=== PATIENT | male | born 1980 | race Caucasian/White ===

== ENCOUNTER 2020-04-22 03:19 | Emergency (ER) | payer OTHER ==
[2020-04-22 03:55] LABS: BASOPHIL 1.8 % (0-2); EOSINOPHIL 5.9 % (0-5); HGB 16.7 g/dl (13.2-18.0); MCH 28.9 pg (25.0-31.0); MCHC 33.4 g/dL (32.0-36.0); MCV 86.7 fL (78.0-100.0); MONOCYTE 8.2 % (0-12); MPV 9.9 fL (6.0-9.5); NEUTROPHIL 50.9 % (41-80); NRBC 0; PLT 220 K/uL (150-400); RBC 5.77 M/uL (4.70-6.00); RDW 12.7 % (11.5-14.0); WBC 8.2 K/uL (4.0-10.5)
[2020-04-22 03:59] LABS: INR 1.05 (0.9-1.2)
[2020-04-22 04:07] LABS: ALBUMIN 4.1 g/dL (3.4-5.0); BILIRUBIN - TOTAL 0.5 mg/dL (0.2-1.0); BUN/CREAT RATIO (CALC) 10.5 RATIO; CREATININE 1.14 mg/dL (0.67-1.17); GLOBULIN (CALCULATION) 3.6 g/dL; POTASSIUM 4.1 mmol/L (3.5-5.1); TOTAL PROTEIN 7.7 g/dL (6.4-8.2)
== END 2020-04-22 07:56 | disposition home or self-care (01) ==
LOC: FER 03:19
PROVIDERS: Emergency Medicine
DX: I45.6 Pre-excitation syndrome (principal)
CPT/HCPCS: 36415; 71045; 80053; 84484; 85025; 85610; 93005